=== PATIENT | female | born 1960 | race Caucasian/White ===

== ENCOUNTER 2022-09-25 15:55 | Emergency (ER) | payer MEDICAID, SELFPAY ==
[2022-09-25 16:09] VITALS: BP 179/102; PULSE 74; RESP 16; TEMP 36.6; O2SAT 100
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
[2022-09-25 18:42] VITALS: BP 179/102; PULSE 74; O2SAT 100
== END 2022-09-25 18:43 | disposition home or self-care (01) ==
PROVIDERS: Emergency Provider Emergency Medicine; PCP Family Medicine
DX: K62.89 Other specified diseases of anus and rectum (principal)
CPT/HCPCS: 99282

== ENCOUNTER → 2022-10-16 17:54 | Outpatient (BNVA) | payer MEDICAID, SELFPAY | PROVIDERS: PCP Family Medicine; Visit Provider Emergency Medicine | DX: N10 Acute pyelonephritis (principal) | CPT/HCPCS: 81000; 87086 ==